=== PATIENT | female | born 1950 ===

== ENCOUNTER 2019-10-27 04:04 | Inpatient (IN) | payer MEDICARE ==
[2019-10-27] MEDS ORDERED: Heparin 1,000 UNITS/ML VIAL ONE ×2 (04:06→04:07)
[2019-10-27 04:35] LABS: #Lymphocytes 1.5 thou/uL (1.20-3.40); #Monocytes 0.8 thou/uL (0.11-0.59); #Neutrophils 10.5 thou/uL (1.40-6.50); %Basophils 0.1 % (0.0-1.0); %Eosinophils 0.3 % (0.0-10.0); %Lymphocytes 11.6 % (21.0-51.0); %Monocytes 6.2 % (0.0-10.0); %Neutrophils 81.7 % (42.0-75.0); Hemoglobin 15.3 g/dL (12.0-16.0); Mean Corpuscular Hemoglobin 31.2 pg (27.0-31.0); Mean Platelet Volume 6.2 fL (7.4-10.4); Platelet Count 184 thou/uL (130-400); RBC Distribution Width 12.2 % (11.5-14.5); Red Blood Cell (RBC) Count 4.92 mill/uL (4.20-5.40); White Blood Cell (WBC) Count 12.8 thou/uL (4.8-10.8)
[2019-10-27 04:47] LABS: Prothrombin Time 13.1 SEC (12.0-14.7)
[2019-10-27 05:24] LABS: ALT (SGPT) 32 U/L (8-55); AST (SGOT) 170 U/L (5-34); Albumin 3.9 g/dL (3.4-4.8); Alkaline Phosphatase 104 U/L (40-110); Anion Gap 19 mmol/L (10-20); BUN (Urea Nitrogen) 10 mg/dL (9.8-20.1); Bilirubin, Total 1.4 mg/dL (0.2-1.2); CK (CPK) 1766 U/L (29-168); Calc. Creatinine Clearance 0 mL/min (70-130); Calcium 8.5 mg/dL (7.8-10.44); Carbon Dioxide 17 mmol/L (23-31); Chloride 99 mmol/L (98-107); Estimated GFR-MDRD Greater than 90; Globulin 2.7 g/dL (2.4-3.5); Glucose 147 mg/dL (80-115); Lipase 13 U/L (8-78); Potassium 4.1 mmol/L (3.5-5.1); Protein, Total 6.6 g/dL (6.0-8.3); Sodium 131 mmol/L (136-145)
[2019-10-27] MEDS ORDERED: Milk Of Magnesia 30 ML UDCUP PO PRN ×2 (05:56→06:04)
[2019-10-27] MEDS ORDERED: Mag-Al 1200 mg/1200 mg/30 ML UDCUP PO PRN ×2 (05:56→06:04)
[2019-10-27] MEDS ORDERED: Sodium Chloride 0.9% 1,000 ML IV SCH ×2 (05:56→15:11)
[2019-10-27] MEDS ORDERED: Aspirin Chewable 81 MG TAB PO SCH (05:56)
[2019-10-27] MEDS ORDERED: traMADol HCl 50 MG TAB PO PRN (05:56)
[2019-10-27] MEDS ORDERED: Morphine 2 MG/ML SYRINGE SLOW IVP PRN ×2 (05:56→06:01)
[2019-10-27] MEDS ORDERED: Zolpidem Tartrate 5 MG TAB PO PRN ×2 (05:56→06:04)
[2019-10-27] MEDS ORDERED: Nitroglycerin 50 MG/250 ML BOT 250 ML IVPB SCH (05:56)
[2019-10-27] MEDS ORDERED: Acetaminophen/Codeine 30-300mg Tablet PO PRN ×4 (05:56)
[2019-10-27] MEDS ORDERED: Nitroglycerin 0.4 MG TAB (25 Tab Bottle) SL PRN ×3 (05:56→06:03)
[2019-10-27] MEDS ORDERED: Sodium Chloride 0.9% 200 ML IV PRN (05:56)
[2019-10-27] MEDS ORDERED: Morphine 4 MG/ML VIAL SLOW IVP PRN (06:02)
[2019-10-27 06:09] VITALS: BMI 29.3
[2019-10-27 06:23] LABS: Hemoglobin 15.4 g/dL (12.0-16.0); Platelet Count 161 thou/uL (130-400)
[2019-10-27] MEDS ORDERED: Prevnar 13-Val Conj/PF 0.5 ML SYRINGE IM ONE (06:30)
[2019-10-27] MEDS ORDERED: FLU VACC TS2019-20(65YR UP)/PF 180 MCG/0.5 ML SYRINGE IM ONE (06:30)
[2019-10-27 06:59] LABS: Troponin I 27.559 ng/mL (< 0.028)
[2019-10-27 06:59] LABS: CKMB 271.9 ng/mL (0-6.6)
[2019-10-27 07:04] LABS: PTT 140.5 SEC (22.9-36.1)
[2019-10-27] MEDS: Carvedilol 3.125 MG TAB PO SCH ×2 (08:30→17:30)
[2019-10-27] MEDS: Aspirin Chewable 81 MG TAB PO SCH (08:31)
[2019-10-27] MEDS: Lisinopril 2.5 MG TAB PO SCH (08:31)
[2019-10-27] MEDS: Heparin 25,000 units/D5W 500 ML IVPB SCH (08:36)
[2019-10-27] MEDS ORDERED: Aspirin 81 mg Enteric Coated Tablet PO SCH (09:00)
[2019-10-27] MEDS ORDERED: Lisinopril 5 MG TAB PO SCH (09:00)
[2019-10-27] MEDS ORDERED: Metoprolol Tartrate 25 MG TAB PO SCH (09:00)
--- NOTE | 2019-10-27 09:15 | HP ---
INDICATION FOR ADMISSION: A 69-year-old female with acute anterior myocardial infarction, ST-segment elevation [place]. HISTORY OF PRESENT ILLNESS: This very pleasant 69-year-old female has a history of tobacco abuse as well as hypertension and uncertain about her cholesterol level. She started having chest pain yesterday evening around 6:30. She took antacids without any relief. She finally called 911. She was seen by EMS and was air-transported here to [facility] for acute anterior myocardial infarction with ST-segment elevations in V1 through V4. She had no previous cardiac history that she is aware of. At this time, her pain originally was about 8/10 and now has decreased down to about 2. She continues to have some pressure. She will be taken emergently to the cardiac laboratory operations coordinator. PAST MEDICAL HISTORY: Significant for hernia repair and also a cholecystectomy and a history of hypertension and hypercholesterolemia most likely. SOCIAL HISTORY: She has a history of tobacco abuse. She continues to smoke. She has smoked for many years now. FAMILY HISTORY: Noncontributory at this time. REVIEW OF SYSTEMS: She complains of constipation. Otherwise, 12-point review of systems unremarkable except for what was noted in the history of present illness. MEDICATIONS: 1. Lisinopril. 2. Lorazepam. ALLERGIES: NONE. PHYSICAL EXAMINATION: GENERAL: An elderly female. She is in mild distress just due to the pain. HEENT: Head is normocephalic and atraumatic. Carotid pulses are present. CHEST: Clear to auscultation. CARDIOVASCULAR: Regular rate and rhythm at this time. No significant murmurs, heaves, thrills, bruits, or rubs. ABDOMEN: Soft, nontender. Well-healed surgical incisions. EXTREMITIES: Pedal pulses are present. Femoral pulses are present. No lower extremity edema. SKIN: Warm and dry. NEUROLOGICAL: She appears to be intact. IMPRESSION AND PLAN: There is no laboratory data as of yet, but we will take the patient emergently to the cardiac laboratory operations coordinator. She denies any history of other medical problems. Given the urgent situation, we will proceed with cardiac catheterization on an urgent basis. Her blood pressure is 129/88, heart rate is 78, respiratory rate is 17. EKG as noted above for acute anterior myocardial infarction with ST-segment elevation in V1 through V4. She still has a small R-wave in V3 as well as R-wave in V4. I have explained the procedure and the risks to her, to include bleeding, infection, possible myocardial infarction, CVA, renal insufficiency, allergic contrast reaction, and the possibility of . She understands and agrees to proceed. We will plan for emergent cardiac catheterization. Job ID: [id number]
--- NOTE | 2019-10-27 09:18 | RAD ---
PORTABLE CHEST: Date: 10/27/2019 HISTORY: Chest pain. FINDINGS: Lungs show no evidence of infiltrate. Heart size normal. Vasculature is mildly prominent. No signific ant effusion. IMPRESSION: No focal infiltrate. POS: [facility]
[2019-10-27] MEDS ORDERED: Iopamidol 370 76% 100 ML VIAL ONE (09:29)
[2019-10-27] MEDS ORDERED: Iopamidol 370 76% 50 ML VIAL FS ONE (09:29)
--- NOTE | 2019-10-27 09:55 | PRG ---
DATE OF SERVICE: 10/27/2019 SUBJECTIVE: This is a 69-year-old female, who suffered an acute myocardial infarction earlier today or yesterday evening that was felt to be an anterior myocardial infarction. However, this most likely was an old infarct in the past that was an asymptomatic myocardial infarction previously, what appeared to be the culprit vessel at this time was most likely the right coronary artery in the mid section, was 90% stenosis, if not 95% stenosis with ectatic vessel, aneurysmal section in the proximal portion and distally, had no evidence of significant stenosis. This vessel was not amenable to undergo angioplasty or stent placement due to the high risk involved and not being certain that this was not the culprit vessel. Her enzymes did not increase significantly, which would make me believe this most likely was a right coronary artery. If it has been a total occlusion of the left anterior descending artery, her cardiac enzymes would have been some more significantly elevated than what they are. Her troponin-I this morning was 27. When she arrived about 4 o'clock this morning, troponin-I was 17.9, MB was 271, and her CK was 1766. At this time, she remains stable. She has no chest pain. She is comfortable. Her blood pressure is 145/91, pulse is 81, respiratory rate is 22, and O2 saturation 99%. PHYSICAL EXAMINATION: HEENT: Reveals the head to be normocephalic and atraumatic. CHEST: Clear to auscultation. CARDIOVASCULAR: Reveals a regular rate and rhythm. There were no gross murmurs. ABDOMEN: Soft and nontender. EXTREMITIES: Pedal pulses are present. NEUROLOGIC: She appears to be fully intact. LABORATORY DATA: Other laboratory data, they are none since earlier today when she had arrival at 4 o'clock this morning, hemoglobin was 15.4 at this time post-catheterization and hematocrit was 43.6. IMPRESSION: 1. Status post acute myocardial infarction, which most likely was involving the right coronary artery and she has a totally occluded left anterior descending artery, flush occlusion at the left main. The left circumflex is free of any significant flow limiting disease. The right coronary artery is severely diseased with a subtotal stenosis also of 90% to 95% and has a good distal target. The ejection fraction actually had been relatively well preserved at about 35% to 40%, if not better, and most likely, when she is recuperated from this initial myocardial infarction, she will be served most likely by undergoing a bypass surgery, which will be single-bypass surgery to the right coronary artery. 2. History of tobacco abuse. Hopefully, she will no longer smoke. 3. Hypertension, this is stable at this time. We will continue to manage the medicines as needed. Also, we will evaluate the cholesterol and we will start statin medications. I have already discussed her case with the CT surgeons and they will evaluate and will decide on the timing of further intervention or surgery. Job ID: [id number]
--- NOTE | 2019-10-27 09:58 | CON ---
DATE OF CONSULTATION: 10/27/2019 HISTORY OF PRESENT ILLNESS: Ms. Carney is a 69-year-old woman, who was brought in with ST-elevation myocardial infarction early this morning. She began having pain yesterday at approximately 6 p.m. and had progressed through the night, where she could not stand anymore in early childhood associate hours and came to the Emergency Department. She was seen by Dr. Sierra and taken for cardiac catheterization. Her catheterization showed a chronically occluded LAD with no back filling. Her circumflex system has no significant luminal encroachment. The right coronary artery is diffusely diseased, more than likely heavily calcified. There may be a bypassable segment down at the distal right/PDA area. It is unapproachable from a stenting standpoint at this stage. The patient smokes half to one pack of cigarettes a day. She has hypertension and takes 10 mg of lisinopril per day. She really has done not much else as far as maintenance medical therapy. PAST MEDICAL HISTORY: Hypertension. PAST SURGICAL HISTORY: None. CURRENT MEDICATIONS: 1. Lisinopril 10 mg daily. 2. Trazodone 50 mg at bedtime. 3. Lorazepam 1 mg p.r.n. ALLERGIES: NONE. SOCIAL HISTORY: She smokes a half to one pack of cigarettes a day. She lives in [place], was here caring for her sister when she came in. REVIEW OF SYSTEMS: A 10-point review of systems is performed, is negative except as above. PHYSICAL EXAMINATION: GENERAL: This is a well-developed, diminutive elderly woman, resting comfortably in the ICU without pain. VITAL SIGNS: Her height is 4 feet 11 inches, weight is 145 pounds, and BSA is 1.66. Heart rate is 81 and regular and blood pressure is 145/91. HEENT: Sclerae nonicteric. Pupils are equal and round bilaterally. NECK: Supple. She has no carotid bruit. CHEST: Clear bilaterally. HEART: Rhythm is regular without murmur. ABDOMEN: Soft and nontender. EXTREMITIES: No cyanosis, clubbing, or edema. VASCULAR: She has palpable carotid, radial, femoral, and dorsalis pedis pulses bilaterally. VENOUS: She has no venous varicosities or venous stasis changes. PSYCHIATRIC: She is awake, alert, and oriented to person, place, and time. LABORATORY DATA: Of note, hemoglobin is 15.3 and platelet count is 184,000. Her potassium is 4.1 and creatinine is 0.64. CK-MB is 272 and troponin is 28 and rising. ASSESSMENT AND PLAN: A 69-year-old woman status post ST-elevation myocardial infarction with an occluded LAD chronically with bypassable right coronary artery. She is not approachable from an interventional standpoint. On ventriculogram, her ejection fraction is 15% to 20%. I have discussed the case with Dr. Sierra and the patient and her family. We will allow her to recover from her TN and then make plans for single-vessel bypass to the PDA in the near future. Job ID: [id number]
[2019-10-27 10:19] LABS: Cardiac Risk 3.8 (Less than 4.5)
[2019-10-27 13:04] LABS: Troponin I 57.775 ng/mL (< 0.028)
--- NOTE | 2019-10-27 15:38 | CON ---
DATE OF CONSULTATION: 10/27/2019 SERVICE: Pulmonary Medicine. REASON FOR CONSULT: ICU patient. HISTORY OF PRESENT ILLNESS: The patient is a 69-year-old white female with past medical history significant for coronary artery disease. She was in her usual state of health when she started having onset of heartburn for the last 3 or 4 days. It was episodic, but it seemed to come on with exertion. Either way, she was sitting, comfortably doing nothing when she ended up having an episode of this heartburn discomfort that spread all the way across her chest and became crushing in nature. She presented to the emergency department and was discovered to have an ST- elevation myocardial infarction. She went down for a cardiac catheterization and an attempt was made opening of a blood vessel. She currently has a twinge of discomfort in the chest, but nothing similar to what brought her to the emergency department. Prior to this event, she was in her usual state of health and did not experience any significant nausea, vomiting, diarrhea, fevers, chills, sputum production. She does not have any known lung problems like COPD or asthma. She is not currently taking any inhalers. Overnight, hemodynamics have been stable, the patient does not report any significant discomforts currently. PAST MEDICAL HISTORY: 1. Coronary artery disease. 2. Hypertension. 3. Dyslipidemia. PAST SURGICAL HISTORY: 1. Cholecystectomy. 2. Repair of hernia. SOCIAL HISTORY: She smokes half a pack on a daily basis, but had greater than 40 pack-year history of smoking. Denies any alcohol or illicit drugs. She has no exposure to chemicals, dust, asbestos, or tuberculosis. FAMILY HISTORY: Noncontributory. ALLERGIES: NO KNOWN DRUG ALLERGIES. MEDICATIONS: List of her inpatient medications were reviewed. No specific updates were made at this time. REVIEW OF SYSTEMS: General; head, ears, eyes, nose, throat; cardiovascular, respiratory, GI, , musculoskeletal, neurologic, and skin are negative except as mentioned in the HPI. PHYSICAL EXAMINATION: VITAL SIGNS: Afebrile, pulse 84, blood pressure 139/94, respirations 30, saturation 95%, currently on 2 L nasal cannula. GENERAL: The patient is awake and alert, in no apparent distress. LUNGS: Good air entry bilaterally. There is no prolonged expiratory phase. Dependent crackles are minimal. No rhonchi. HEART: Normal rate, regular. ABDOMEN: Soft, nontender, nondistended. Bowel sounds are positive. MUSCULOSKELETAL: No cyanosis or clubbing. There is trace pitting in the bilateral lower extremities. NEUROLOGIC: Grossly nonfocal. LABORATORY DATA: Hemoglobin 15.4, WBC 12.8, platelets 184,000. INR 1.0. Troponin is increasing to 57.7. CK 1700, ALT of 32. Total bilirubin 1.4. Basic metabolic profile is otherwise unremarkable. Lipase is unremarkable. Echocardiogram demonstrates 35% to 40% ejection fraction. The septum is akinetic and apex is dyskinetic. There is 1/3 diastolic dysfunction. The anterior wall is also akinetic. Left atrium is msfs-[id number] dilated. ASSESSMENT: 1. Acute hypoxic respiratory failure. 2. Acute on chronic systolic and diastolic heart failure. 3. Acute ST elevation myocardial infarction, status post cardiac catheterization and no intervention could be performed. DISCUSSION AND PLAN: The patient is doing okay from respiratory and hemodynamic standpoint currently. We will watch for signs of end-organ damage and we will repeat liver function studies tomorrow morning. Pulmonary/Critical Care will continue to follow in this location. She is being considered for revascularization procedure. In the meantime, IV fluids will be interrupted. 70 minutes have been devoted to this patient in various activities. I personally reviewed all imaging studies and laboratory data noted within this document. For fifty percent of this time, I was interacting with the patient at the bedside or coordinating care with the care team. For the remainder of the time I was immediately available to the patient in the hospital unit. Job ID: [id number] MTDD
[2019-10-27] MEDS: Lorazepam 1 MG TAB PO PRN ×2 (15:52→19:49)
[2019-10-27] MEDS ORDERED: Ondansetron PF 4 MG/2 ML Vial SLOW IVP PRN (19:01)
[2019-10-27] MEDS ORDERED: Atorvastatin Calcium 40 MG TAB PO SCH (21:00)
[2019-10-27] MEDS: traZODone HCl 50 MG TAB PO SCH (21:38)
[2019-10-28 02:34] LABS: #Basophils 0.1 thou/uL (0.0-0.2); #Lymphocytes 0.9 thou/uL (1.20-3.40); #Monocytes 0.7 thou/uL (0.11-0.59); #Neutrophils 12.5 thou/uL (1.40-6.50); %Basophils 0.4 % (0.0-1.0); %Eosinophils 0.1 % (0.0-10.0); %Lymphocytes 6.3 % (21.0-51.0); %Monocytes 5.3 % (0.0-10.0); %Neutrophils 87.9 % (42.0-75.0); Hemoglobin 16.6 g/dL (12.0-16.0); Mean Corpuscular HGB CONC 35.6 g/dL (32.0-36.0); Mean Corpuscular Hemoglobin 31.4 pg (27.0-31.0); Mean Corpuscular Volume 88.2 fL (78.0-98.0); Mean Platelet Volume 6.2 fL (7.4-10.4); Platelet Count 166 thou/uL (130-400); RBC Distribution Width 12.3 % (11.5-14.5); Red Blood Cell (RBC) Count 5.29 mill/uL (4.20-5.40); White Blood Cell (WBC) Count 14.2 thou/uL (4.8-10.8)
[2019-10-28 03:05] LABS: ALT (SGPT) 67 U/L (8-55); AST (SGOT) 304 U/L (5-34); Albumin 3.7 g/dL (3.4-4.8); Alkaline Phosphatase 107 U/L (40-110); Anion Gap 13 mmol/L (10-20); BUN (Urea Nitrogen) 8 mg/dL (9.8-20.1); Bilirubin, Total 1.8 mg/dL (0.2-1.2); CK (CPK) 1706 U/L (29-168); Calc. Creatinine Clearance 81 mL/min (70-130); Carbon Dioxide 23 mmol/L (23-31); Cardiac Risk 3.8 (Less than 4.5); Chloride 103 mmol/L (98-107); Cholesterol 214 mg/dl (< 200 Desired); Estimated GFR-MDRD 87; Globulin 2.9 g/dL (2.4-3.5); Glucose 142 mg/dL (80-115); HDL Cholesterol 56 mg/dL (>60 Neg Risk); LDL Cholesterol, Calculated 137 mg/dL; Potassium 3.6 mmol/L (3.5-5.1); Protein, Total 6.6 g/dL (6.0-8.3); Sodium 135 mmol/L (136-145); Triglycerides 105 mg/dL (Less than 150)
[2019-10-28] MEDS: Heparin 10,000 UNITS/ 10 ML VIAL SLOW IVP SCH ×2 (03:23→10:05)
[2019-10-28 08:33] LABS: Troponin I 69.353 ng/mL (< 0.028)
[2019-10-28] MEDS: Carvedilol 3.125 MG TAB PO SCH ×2 (08:44→17:41)
[2019-10-28] MEDS: Lisinopril 2.5 MG TAB PO SCH (08:44)
[2019-10-28] MEDS: Aspirin Chewable 81 MG TAB PO SCH (08:44)
[2019-10-28] MEDS: Lorazepam 1 MG TAB PO PRN ×2 (08:45→17:47)
[2019-10-28] MEDS ORDERED: Magnesium Citrate 300 ML BOT PO PRN ×2 (08:56→08:59)
[2019-10-28] MEDS ORDERED: Bisacodyl 5 MG TAB PO PRN ×2 (08:58)
[2019-10-28] MEDS ORDERED: Bisacodyl 10 MG SUPP PR PRN (08:58)
--- NOTE | 2019-10-28 09:07 | PDOC.CPN ---
- Subjective Date: 10/28/19 Time: 09:11 Interval history: The pt seen and examined. No overnight events. No cardiac complaints. - Objective Allergies/Adverse Reactions: Allergies Allergy/AdvReac Type Severity Reaction Status Date / Time No Known Allergies Allergy Unverified 10/27/19 05:49 Visit Medications: Current Medications Acetaminophen/Codeine Phosphate (Tylenol #3) 1 tab PO Q4H PRN PRN Reason: Mild Pain (1-3) Acetaminophen/Codeine Phosphate (Tylenol #3) 2 tab PO Q4H PRN PRN Reason: Moderate Pain (4-6) Al Hydroxide/Mg Hydroxide (Maalox) 30 ml PO Q3H PRN PRN Reason: Indigestion Aspirin (Aspirin Chewable) 81 mg PO DAILY [facility] Last Admin: 10/28/19 08:44 Dose: 81 mg Atorvastatin Calcium (Lipitor) 40 mg PO HS [facility] Last Admin: 10/27/19 21:41 Dose: Not Given Bisacodyl (Dulcolax) 5 mg PO DAILYPRN PRN PRN Reason: Constipation Bisacodyl (Dulcolax) 10 mg PO DAILYPRN PRN PRN Reason: Constipation Bisacodyl (Dulcolax) 10 mg MA DAILYPRN PRN PRN Reason: Constipation Carvedilol (Coreg) 3.125 mg PO BID-[facility] Last Admin: 10/28/19 08:44 Dose: 3.125 mg Heparin Sodium (Porcine) (Heparin 1,000 Units/Ml (10 Ml)) 0 units SLOW IVP ASDIR [facility]; Protocol Last Admin: 10/28/19 03:23 Dose: 1,977 unit Heparin Sodium/Dextrose (Heparin 25,000 Units/D5w 500 Ml) 500 mls @ 0 mls/hr IVPB INF [facility]; Protocol Last Admin: 10/27/19 08:36 Dose: 500 mls Nitroglycerin/Dextrose (Nitroglycerin 50 Mg/250 Ml Bot) 250 mls @ 0 mls/hr IVPB INF [facility]; Protocol Sodium Chloride (Normal Saline 0.9%) 200 mls @ 0 mls/hr IV ONE PRN PRN Reason: SBP < 90 Stop: 10/29/19 05:57 Sodium Chloride (Normal Saline 0.9%) 1,000 mls @ 0 mls/hr IV .Q0M [facility] Lisinopril (Zestril) 2.5 mg PO DAILY [facility] Last Admin: 10/28/19 08:44 Dose: 2.5 mg Lorazepam (Ativan) 1 mg PO Q4H PRN PRN Reason: Anxiety/Agitation Last Admin: 10/28/19 08:45 Dose: 1 mg Magnesium Citrate (Citrate Of Magnesia 300 Ml Bot) 300 ml PO PRN PRN PRN Reason: Constipation Magnesium Hydroxide (Milk Of Magnesium) 30 ml PO Q12H PRN PRN Reason: Constipation Last Admin: 10/28/19 08:53 Dose: 30 ml Morphine Sulfate (Morphine) 4 mg SLOW IVP Q4H PRN PRN Reason: Severe Pain (7-10) Last Admin: 10/27/19 06:18 Dose: 4 mg Morphine Sulfate (Morphine) 2 mg SLOW IVP Q5MIN PRN PRN Reason: Chest Pain Nitroglycerin (Nitrostat) 0.4 mg SL Q5MIN PRN PRN Reason: Chest Pain Ondansetron HCl (Zofran) 4 mg SLOW IVP Q6H PRN PRN Reason: Nausea Last Admin: 10/27/19 20:12 Dose: 4 mg Polyethylene Glycol (Miralax) 17 gm PO DAILY [facility] Sodium Chloride (Flush - Normal Saline) 10 ml IVF Q12HR [facility] Last Admin: 10/27/19 21:41 Dose: 10 ml Sodium Chloride (Flush - Normal Saline) 10 ml IVF PRN PRN PRN Reason: Saline Flush Tramadol HCl (Ultram) 50 mg PO Q6H PRN PRN Reason: Pain Last Admin: 10/27/19 11:48 Dose: 50 mg Trazodone HCl (Desyrel) 50 mg PO HS [facility] Last Admin: 10/27/19 21:38 Dose: 50 mg Zolpidem Tartrate (Ambien) 5 mg PO HSPRN PRN PRN Reason: Insomnia Last Admin: 10/27/19 22:09 Dose: 5 mg Vital Signs & Weight: Vital Signs Temp Pulse Resp BP 10/28/19 08:44 92 126/91 H 10/28/19 05:07 92 26 H 117/66 10/28/19 04:00 98 F Admit Weight 145 lb 4.554 oz Weight 145 lb 4.554 oz - Physical Exam General: alert & oriented x3 HEENT: mucus membranes moist Neck: supple neck Cardiac: regular rate and rhythm, S1/S2 Lungs: decreased breath sounds Neuro: cranial nerve 2-12 intact Extremities: no edema - Labs Result Diagrams: 10/28/19 02:28 10/28/19 02:28 Troponin/CKMB CK-MB (CK-2) 271.9 ng/mL (0-6.6) H* 10/27/19 04:11 Troponin I 69.353 ng/mL (< 0.028) H* 10/28/19 02:28 - Telemetry Sinus rhythms and dysrhythmias: sinus rhythm - Assessment/Plan Assessment/Plan: 1. CAD with plan for CABG x1 to RCA in future by Dr Welsh; s/p LHC on 2019 with 100% stenosis in LAD and no stenosis in Lt Cx. On bblocker, Lisinopril, ASA. Will hold statin for now for elevated LFT 2. HLD with Elevated LFT - will hold Statin for now 3. HTN - stable with current med 4. Anxiety 5. Tobacco abuse - Strongly recommend smoking cessation to the pt 6. Constipation - will order Miralax, Docolax, Mg citrate MAR reviewed Pt. seen and eval. by me. I agree with the A/P by the [employer]. She walked today without problems. The Troponin -I is still trending upward. I will keep the pt. in the ICU. She will need intervention to the RCA prior to d/c, either CABG or high risk ptca/stent. The LAD was likely totally included in the past. ME was likely due to the RCA, this has remaed open on antiplatelet therapy and heparin. Chest: clear. RRR. No edema. gjmays
[2019-10-28] MEDS: Polyethylene Glycol 3350 17 GM Packet PO SCH (10:04)
[2019-10-28] MEDS: Heparin 25,000 units/D5W 500 ML IVPB SCH (10:08)
[2019-10-28 10:42] LABS: Troponin I 87.821 ng/mL (< 0.028)
[2019-10-28 16:15] LABS: Critical Call Chem Troponin I RESULT DECREASING; Troponin I 80.259 ng/mL (< 0.028)
--- NOTE | 2019-10-28 17:02 | EKG ---
Test Reason : Blood Pressure : / mmHG Vent. Rate : 080 BPM Atrial Rate : 080 BPM P-R Int : 186 ms QRS Dur : 122 ms QT Int : 406 ms P-R-T Axes : 067 -14 085 degrees QTc Int : 468 ms Normal sinus rhythm Anteroseptal infarct , possibly acute ACUTE MT / STEMI Abnormal ECG No previous ECGs available Confirmed by DR. Tenzin EATON ([id number]) on 10/28/2019 5:01:43 PM Referred By: MAXIMILIAN Confirmed By:DR. Tenzin EATON
[2019-10-28] MEDS: traZODone HCl 50 MG TAB PO SCH (20:09)
--- NOTE | 2019-10-28 20:37 | PRG ---
DATE OF SERVICE: 10/28/2019 SERVICE: Pulmonary Medicine. INTERVAL HISTORY: The patient is doing fine from respiratory standpoint. She is breathing comfortably. She is not having much in way of chest discomfort. Her biggest complaint right now is constipation. She will remain in the ICU for the time being. Otherwise, there has been no interval change to her condition. PHYSICAL EXAMINATION: VITAL SIGNS: Afebrile, pulse 97, blood pressure 127/76, respirations 27, saturation 97%, currently on 2 L nasal cannula. GENERAL: The patient is awake and alert, in no apparent distress. LUNGS: Good air entry bilaterally. No prolonged expiratory phase or wheezing appreciated. Dependent crackles are mild. HEART: Normal rate, regular. ABDOMEN: Soft, nontender, nondistended. Bowel sounds are positive. MUSCULOSKELETAL: No cyanosis or clubbing. No pitting in bilateral lower extremities. NEUROLOGIC: Grossly nonfocal. ASSESSMENT: 1. Acute hypoxic respiratory failure. 2. Acute on chronic systolic and diastolic heart failure. 3. Acute ST elevation myocardial infarction, status post cardiac catheterization , but no intervention could be performed. DISCUSSION AND PLAN: We will provide the patient with some medications to facilitate a bowel movement. If this is not effective and docusate suppository is not effective, p.r.n. enema will be provided. Critical Care will follow. Job ID: [id number] [facility]
[2019-10-29] MEDS: Lorazepam 1 MG TAB PO PRN ×4 (01:11→20:25)
[2019-10-29 04:29] LABS: Critical Call Chem Troponin I RESULT DECREASING; Troponin I 72.968 ng/mL (< 0.028)
[2019-10-29 06:12] LABS: Hemoglobin 13.8 g/dL (12.0-16.0); Platelet Count 151 thou/uL (130-400)
[2019-10-29] MEDS: Carvedilol 3.125 MG TAB PO SCH ×2 (08:52→16:23)
[2019-10-29] MEDS: Aspirin Chewable 81 MG TAB PO SCH (08:52)
[2019-10-29] MEDS: Lisinopril 2.5 MG TAB PO SCH (08:53)
[2019-10-29] MEDS: Polyethylene Glycol 3350 17 GM Packet PO SCH (08:53)
[2019-10-29] MEDS: Heparin 25,000 units/D5W 500 ML IVPB SCH (08:54)
[2019-10-29] MEDS: Heparin 10,000 UNITS/ 10 ML VIAL SLOW IVP SCH ×2 (10:40→23:28)
[2019-10-29 16:25] LABS: Hemoglobin A1c 4.8 % (4.0-6.0)
[2019-10-29] MEDS ORDERED: Communication Order-Pharmacy FS ONE (17:24)
--- NOTE | 2019-10-29 19:19 | PRG ---
DATE OF SERVICE: 10/29/2019 SERVICE: Pulmonary Medicine. INTERVAL HISTORY: The patient is doing fine from respiratory standpoint. Breathing comfortably. No complaints of chest discomfort. She is able to work with physical therapy slightly. Otherwise, there has been no interval change in her condition. PHYSICAL EXAMINATION: VITAL SIGNS: Afebrile, pulse 87, blood pressure 85/62, respirations 16, and saturation 98%, currently on room air. GENERAL: The patient is awake and alert, in no apparent distress. LUNGS: Good air entry. Dependent crackles are minimal. There is no prolonged expiratory phase or wheezing appreciated. HEART: Normal rate. Regular. ABDOMEN: Soft, nontender, and nondistended. Bowel sounds positive. MUSCULOSKELETAL: No cyanosis or clubbing. There is trace pitting in bilateral lower extremities. NEUROLOGIC: Grossly nonfocal. LABORATORY DATA: Hemoglobin 13.8 and platelets 151,000. Troponin is gently downtrending to 72. Basic metabolic profile is unremarkable. Hemoglobin A1c 4.8. ASSESSMENT: 1. Acute hypoxic respiratory failure, resolved. 2. Acute on chronic systolic and diastolic heart failure. 3. Acute myocardial infarction, status post cardiac catheterization, intervention could not be performed. DISCUSSION AND PLAN: The patient is currently without chest discomfort. She has not had any significant events on cardiac monitoring for the past 24 hours. She is being transitioned to the floor. At this point, she has no further requirements for inpatient Pulmonary or Critical Care opinion, and I will sign off. She remains at high risk for complications. Should she develop increasing difficulties, please notify me. Job ID: [id number] MTDD
[2019-10-29] MEDS: traZODone HCl 50 MG TAB PO SCH ×2 (20:20→20:21)
[2019-10-30] MEDS: Heparin 10,000 UNITS/ 10 ML VIAL SLOW IVP SCH (06:18)
[2019-10-30] MEDS: Lorazepam 1 MG TAB PO PRN ×2 (06:38→16:31)
[2019-10-30 06:39] LABS: Critical Call Chem Troponin I RESULT DECREASING; Troponin I 58.858 ng/mL (< 0.028)
[2019-10-30] MEDS: Polyethylene Glycol 3350 17 GM Packet PO SCH (08:18)
[2019-10-30] MEDS: Lisinopril 2.5 MG TAB PO SCH (08:19)
[2019-10-30] MEDS: Carvedilol 3.125 MG TAB PO SCH ×2 (08:19→17:35)
[2019-10-30] MEDS: Aspirin Chewable 81 MG TAB PO SCH (08:19)
[2019-10-30] MEDS: Heparin 25,000 units/D5W 500 ML IVPB SCH (08:20)
--- NOTE | 2019-10-30 09:54 | PDOC.CPN ---
- Subjective Date: 10/30/19 Time: 09:55 Interval history: The pt seen and examined. No overnight events. No cardiac complaints. - Objective Allergies/Adverse Reactions: Allergies Allergy/AdvReac Type Severity Reaction Status Date / Time No Known Allergies Allergy Unverified 10/27/19 05:49 Visit Medications: Current Medications Acetaminophen/Codeine Phosphate (Tylenol #3) 1 tab PO Q4H PRN PRN Reason: Mild Pain (1-3) Stop: 11/01/19 08:59 Acetaminophen/Codeine Phosphate (Tylenol #3) 2 tab PO Q4H PRN PRN Reason: Moderate Pain (4-6) Stop: 11/01/19 08:59 Al Hydroxide/Mg Hydroxide (Maalox) 30 ml PO Q3H PRN PRN Reason: Indigestion Stop: 11/01/19 08:59 Aspirin (Aspirin Chewable) 81 mg PO DAILY GREGG Stop: 11/01/19 08:59 Last Admin: 10/30/19 08:19 Dose: 81 mg Bisacodyl (Dulcolax) 5 mg PO DAILYPRN PRN PRN Reason: Constipation Stop: 11/01/19 08:59 Bisacodyl (Dulcolax) 10 mg UT DAILYPRN PRN PRN Reason: Constipation Stop: 11/01/19 08:59 Carvedilol (Coreg) 3.125 mg PO BID-[facility] Last Admin: 10/30/19 08:19 Dose: 3.125 mg Heparin Sodium (Porcine) (Heparin 1,000 Units/Ml (10 Ml)) 0 units SLOW IVP ASDIR GREGG; Protocol Stop: 11/01/19 08:59 Last Admin: 10/30/19 06:18 Dose: 1.97 ml Heparin Sodium/Dextrose (Heparin 25,000 Units/D5w) 500 mls @ 0 mls/hr IVPB INF GREGG; Protocol Stop: 11/01/19 08:59 Last Admin: 10/30/19 08:20 Dose: 500 mls Nitroglycerin/Dextrose (Nitroglycerin 50 Mg/250 Ml Bot) 250 mls @ 0 mls/hr IVPB INF GREGG; Protocol Stop: 11/01/19 08:59 Sodium Chloride (Normal Saline 0.9%) 1,000 mls @ 0 mls/hr IV .Q0M GREGG Stop: 11/01/19 08:59 Lisinopril (Zestril) 2.5 mg PO DAILY [facility] Last Admin: 10/30/19 08:19 Dose: 2.5 mg Lorazepam (Ativan) 1 mg PO Q4H PRN PRN Reason: Anxiety/Agitation Stop: 11/01/19 08:59 Last Admin: 10/30/19 06:38 Dose: 1 mg Magnesium Citrate (Citrate Of Magnesia 300 Ml Bot) 300 ml PO PRN PRN PRN Reason: Constipation Stop: 11/01/19 08:59 Last Admin: 10/28/19 14:55 Dose: 300 ml Magnesium Hydroxide (Milk Of Magnesium) 30 ml PO Q12H PRN PRN Reason: Constipation Stop: 11/01/19 08:59 Last Admin: 10/28/19 08:53 Dose: 30 ml Morphine Sulfate (Morphine) 4 mg SLOW IVP Q4H PRN PRN Reason: Severe Pain (7-10) Stop: 11/01/19 08:59 Last Admin: 10/27/19 06:18 Dose: 4 mg Morphine Sulfate (Morphine) 2 mg SLOW IVP Q5MIN PRN PRN Reason: Chest Pain Stop: 11/01/19 08:59 Nitroglycerin (Nitrostat) 0.4 mg SL Q5MIN PRN PRN Reason: Chest Pain Stop: 11/01/19 08:59 Ondansetron HCl (Zofran) 4 mg SLOW IVP Q6H PRN PRN Reason: Nausea Stop: 11/01/19 08:59 Last Admin: 10/27/19 20:12 Dose: 4 mg Polyethylene Glycol (Miralax) 17 gm PO DAILY GREGG Stop: 11/01/19 08:59 Last Admin: 10/30/19 08:18 Dose: 17 gm Sodium Chloride (Flush - Normal Saline) 10 ml IVF Q12HR GREGG Stop: 11/01/19 08:59 Last Admin: 10/30/19 08:19 Dose: 10 ml Sodium Chloride (Flush - Normal Saline) 10 ml IVF PRN PRN PRN Reason: Saline Flush Stop: 11/01/19 08:59 Last Admin: 10/29/19 16:24 Dose: 10 ml Tramadol HCl (Ultram) 50 mg PO Q6H PRN PRN Reason: Pain Stop: 11/01/19 08:59 Last Admin: 10/27/19 11:48 Dose: 50 mg Trazodone HCl (Desyrel) 50 mg PO HS GREGG Stop: 11/01/19 08:59 Last Admin: 10/29/19 20:21 Dose: 50 mg Zolpidem Tartrate (Ambien) 5 mg PO HSPRN PRN PRN Reason: Insomnia Stop: 11/01/19 08:59 Last Admin: 10/27/19 22:09 Dose: 5 mg Vital Signs & Weight: Vital Signs Temp Pulse Resp BP BP Pulse Ox 10/30/19 08:19 80 10/30/19 07:18 98.9 F 88 12 92/66 97 10/30/19 06:41 89 96/69 10/30/19 03:25 98.6 F 86 18 85/67 L 97 10/30/19 00:32 80 96/70 10/29/19 23:40 98.4 F 80 20 78/57 L 96 Admit Weight 145 lb 4.554 oz Weight 145 lb 4.554 oz - Physical Exam General: alert & oriented x3 HEENT: mucus membranes moist Neck: supple neck Cardiac: regular rate and rhythm, S1/S2 Lungs: decreased breath sounds Neuro: cranial nerve 2-12 intact - Labs Result Diagrams: 10/29/19 05:44 10/28/19 02:28 Troponin/CKMB CK-MB (CK-2) 271.9 ng/mL (0-6.6) H* 10/27/19 04:11 Troponin I 58.858 ng/mL (< 0.028) H* 10/30/19 05:48 - Telemetry Sinus rhythms and dysrhythmias: sinus rhythm - Assessment/Plan Assessment/Plan: 1. CAD with s/p LHC on 10/26/2019 with 100% stenosis in LAD, stenosis in RCA and no stenosis in Lt Cx. Plan for CABG x1 to RCA in future by Dr Welsh on 10/31; On bblocker, Lisinopril, ASA. Will hold statin for elevated LFT. On Heparin drip. 2. HLD with Elevated LFT - will hold Statin for now 3. HTN - stable with current med 4. Anxiety 5. Tobacco abuse - The pt is willing to start smoking cessation 6. Constipation - will order Miralax, Docolax, Mg citrate MAR reviewed Pt. seen and eval. by me. No complaints. Walking in halls. No chest pain or SOB. Chest clear. RRR. Plan for CABG prior to d/c. May need a Life-Vest prior to d/c. Plan to repeat the echo prior to d/c after CABG. hay
[2019-10-30] MEDS: traZODone HCl 50 MG TAB PO SCH (22:28)
[2019-10-31] MEDS: Heparin 25,000 units/D5W 500 ML IVPB SCH ×2 (03:00→20:02)
[2019-10-31] MEDS: Lorazepam 1 MG TAB PO PRN ×4 (03:13→20:05)
[2019-10-31 06:14] LABS: Hemoglobin 11.9 g/dL (12.0-16.0); Platelet Count 156 thou/uL (130-400)
[2019-10-31 06:39] LABS: ALT (SGPT) 36 U/L (8-55); AST (SGOT) 39 U/L (5-34); Albumin 3.1 g/dL (3.4-4.8); Alkaline Phosphatase 79 U/L (40-110); Anion Gap 9 mmol/L (10-20); BUN (Urea Nitrogen) 10 mg/dL (9.8-20.1); Calc. Creatinine Clearance 92 mL/min (70-130); Calcium 8.6 mg/dL (7.8-10.44); Carbon Dioxide 26 mmol/L (23-31); Chloride 104 mmol/L (98-107); Estimated GFR-MDRD Greater than 90; Globulin 2.9 g/dL (2.4-3.5); Glucose 109 mg/dL (80-115); Potassium 3.3 mmol/L (3.5-5.1); Sodium 136 mmol/L (136-145)
--- NOTE | 2019-10-31 08:17 | EKG ---
Test Reason : Blood Pressure : / mmHG Vent. Rate : 101 BPM Atrial Rate : 101 BPM P-R Int : 138 ms QRS Dur : 098 ms QT Int : 348 ms P-R-T Axes : 044 -46 086 degrees QTc Int : 451 ms Sinus tachycardia Left anterior fascicular block Anteroseptal infarct (cited on or before 27-OCT-2019) * ACUTE LA * Abnormal ECG When compared with ECG of 27-OCT-2019 06:04, (Unconfirmed) QRS duration has decreased Serial changes of evolving Anteroseptal infarct Present Confirmed by DR. Washington TEJEDA ([id number]) on 10/31/2019 8:17:23 AM Referred By: MAXIMILIAN Confirmed By:DR. Washington TEJEDA
[2019-10-31] MEDS ORDERED: Potassium Chloride 20 MEQ TAB PO SCH (09:00)
[2019-10-31] MEDS: Polyethylene Glycol 3350 17 GM Packet PO SCH (09:58)
[2019-10-31] MEDS: Aspirin Chewable 81 MG TAB PO SCH (09:58)
[2019-10-31] MEDS: Carvedilol 3.125 MG TAB PO SCH ×2 (09:58→18:39)
[2019-10-31] MEDS: Lisinopril 2.5 MG TAB PO SCH (10:50)
--- NOTE | 2019-10-31 11:14 | PDOC.CPN ---
- Subjective Date: 10/31/19 Time: 11:16 Interval history: The pt seen and examined. No overnight events. No cardiac complaints. She complains of burning sensation during urination - Objective Allergies/Adverse Reactions: Allergies Allergy/AdvReac Type Severity Reaction Status Date / Time No Known Allergies Allergy Unverified 10/27/19 05:49 Visit Medications: Current Medications Acetaminophen/Codeine Phosphate (Tylenol #3) 1 tab PO Q4H PRN PRN Reason: Mild Pain (1-3) Stop: 11/01/19 08:59 Acetaminophen/Codeine Phosphate (Tylenol #3) 2 tab PO Q4H PRN PRN Reason: Moderate Pain (4-6) Stop: 11/01/19 08:59 Al Hydroxide/Mg Hydroxide (Maalox) 30 ml PO Q3H PRN PRN Reason: Indigestion Stop: 11/01/19 08:59 Aspirin (Aspirin Chewable) 81 mg PO DAILY GREGG Stop: 11/01/19 08:59 Last Admin: 10/31/19 09:58 Dose: 81 mg Bisacodyl (Dulcolax) 5 mg PO DAILYPRN PRN PRN Reason: Constipation Stop: 11/01/19 08:59 Bisacodyl (Dulcolax) 10 mg IN DAILYPRN PRN PRN Reason: Constipation Stop: 11/01/19 08:59 Carvedilol (Coreg) 3.125 mg PO BID-[facility] Last Admin: 10/31/19 09:58 Dose: 3.125 mg Heparin Sodium (Porcine) (Heparin 1,000 Units/Ml (10 Ml)) 0 units SLOW IVP ASDIR GREGG; Protocol Stop: 11/01/19 08:59 Last Admin: 10/30/19 06:18 Dose: 1.97 ml Heparin Sodium/Dextrose (Heparin 25,000 Units/D5w) 500 mls @ 0 mls/hr IVPB INF GREGG; Protocol Stop: 11/01/19 08:59 Last Admin: 10/31/19 03:00 Dose: 500 mls Nitroglycerin/Dextrose (Nitroglycerin 50 Mg/250 Ml Bot) 250 mls @ 0 mls/hr IVPB INF GREGG; Protocol Stop: 11/01/19 08:59 Sodium Chloride (Normal Saline 0.9%) 1,000 mls @ 0 mls/hr IV .Q0M GREGG Stop: 03/06/20 08:59 Lorazepam (Ativan) 1 mg PO Q4H PRN PRN Reason: Anxiety/Agitation Stop: 11/01/19 08:59 Last Admin: 10/31/19 09:59 Dose: 1 mg Magnesium Citrate (Citrate Of Magnesia 300 Ml Bot) 300 ml PO PRN PRN PRN Reason: Constipation Stop: 11/01/19 08:59 Last Admin: 10/28/19 14:55 Dose: 300 ml Magnesium Hydroxide (Milk Of Magnesium) 30 ml PO Q12H PRN PRN Reason: Constipation Stop: 11/01/19 08:59 Last Admin: 10/28/19 08:53 Dose: 30 ml Morphine Sulfate (Morphine) 4 mg SLOW IVP Q4H PRN PRN Reason: Severe Pain (7-10) Stop: 11/01/19 08:59 Last Admin: 10/27/19 06:18 Dose: 4 mg Morphine Sulfate (Morphine) 2 mg SLOW IVP Q5MIN PRN PRN Reason: Chest Pain Stop: 11/01/19 08:59 Nitroglycerin (Nitrostat) 0.4 mg SL Q5MIN PRN PRN Reason: Chest Pain Stop: 11/01/19 08:59 Ondansetron HCl (Zofran) 4 mg SLOW IVP Q6H PRN PRN Reason: Nausea Stop: 11/01/19 08:59 Last Admin: 10/27/19 20:12 Dose: 4 mg Polyethylene Glycol (Miralax) 17 gm PO DAILY GREGG Stop: 11/01/19 08:59 Last Admin: 10/31/19 09:58 Dose: 17 gm Sodium Chloride (Flush - Normal Saline) 10 ml IVF Q12HR GREGG Stop: 11/01/19 08:59 Last Admin: 10/31/19 09:59 Dose: 10 ml Sodium Chloride (Flush - Normal Saline) 10 ml IVF PRN PRN PRN Reason: Saline Flush Stop: 11/01/19 08:59 Last Admin: 10/29/19 16:24 Dose: 10 ml Tramadol HCl (Ultram) 50 mg PO Q6H PRN PRN Reason: Pain Stop: 11/01/19 08:59 Last Admin: 10/27/19 11:48 Dose: 50 mg Trazodone HCl (Desyrel) 50 mg PO HS [facility] Stop: 11/01/19 08:59 Last Admin: 10/30/19 22:28 Dose: 50 mg Zolpidem Tartrate (Ambien) 5 mg PO HSPRN PRN PRN Reason: Insomnia Stop: 11/01/19 08:59 Last Admin: 10/27/19 22:09 Dose: 5 mg Vital Signs & Weight: Vital Signs Temp Pulse Resp BP Pulse Ox 10/31/19 10:50 71 10/31/19 07:33 98.4 F 71 16 92/69 96 10/31/19 04:00 97.9 F 79 16 89/76 L 97 10/31/19 00:00 98.7 F 80 16 96/70 96 Admit Weight 145 lb 4.554 oz Weight 145 lb 4.554 oz - Physical Exam General: alert & oriented x3 HEENT: mucus membranes moist Neck: supple neck Cardiac: regular rate and rhythm, S1/S2 Lungs: clear to auscultation - Labs Result Diagrams: 10/31/19 05:56 10/31/19 05:56 Troponin/CKMB CK-MB (CK-2) 271.9 ng/mL (0-6.6) H* 10/27/19 04:11 Troponin I 58.858 ng/mL (< 0.028) H* 10/30/19 05:48 - Telemetry Sinus rhythms and dysrhythmias: sinus rhythm - Assessment/Plan Assessment/Plan: 1. CAD with s/p LHC on 10/26/2019 with 100% stenosis in LAD, stenosis in RCA and no stenosis in Lt Cx. Plan for CABG x1 to RCA in future by Dr Welsh on 10/31; On bblocker and ASA. Lisinopril is on hold how due to hypotensive. may resume statin after CABG; On Heparin drip. 2. HLD with Elevated LFT -may resume Statin after CABG 3. HTN - holding Lisinopril for hypotension 4. Anxiety 5. Tobacco abuse - The pt is willing to start smoking cessation 6. Constipation - will order Miralax, Docolax, Mg citrate 7. Burning during urination - will order UA MAR reviewed * Echo on 10/27/2019 with EF 35-40%, grade I dd, akinetic anterior wall, [place] and Septum, mild MR and TR * May need a Life-Vest prior to d/c. Plan to repeat the echo prior to d/c after CABG. Pt. seen and eval. by me. I agree with the A/P by the HOIST MECHANIC. U/A is + for UTI. Start Rocephin and switch to Cipro tomorrow. I will inform Dr. Herrmann and he may wish to wait over the weekend to do CABG. Chest clear. RRR. No edema.
[2019-10-31 13:23] LABS: Bacteria/HPF 4+ HPF (None Seen); Bilirubin Negative (Negative); Blood, Urine 1+ (Negative); Clarity Extra Turbid (Clear); Glucose, Urine (Dipstick) Normal (Negative); Leukocyte 500 Leu/uL (Negative); Nitrite Negative (Negative); Protein, Urine (Dipstick) 30 mg/dL (Neg-Trace); RBC/HPF 21-50 HPF (0-3); Squamous Epithelial 0-3 HPF (0-3); Urobilinogen Normal mg/dL (Less than 2); WBC/HPF Greater than 50 HPF (0-3)
[2019-10-31 13:27] LABS: Urine Culture Reflex Yes Yes
[2019-10-31] MEDS ORDERED: cefTRIAXone\\ROCEPHIN 1 GM in Sodium Chloride 0.9% 100 ML IVPB SCH ×2 (18:30→21:00)
[2019-10-31] MEDS: traZODone HCl 50 MG TAB PO SCH (20:05)
[2019-11-01 03:05] LABS: PTT 128.3 SEC (22.9-36.1)
[2019-11-01] MEDS ORDERED: Heparin 10,000 UNITS/1 ML VIAL 30,000 UNITS in Sodium Chloride 0.9% 1,000 ML FS SCH (08:45)
[2019-11-01] MEDS: Carvedilol 3.125 MG TAB PO SCH (09:11)
[2019-11-01] MEDS ORDERED: Lidocaine 1% PF 5 ML VIAL ONE (09:59)
[2019-11-01] MEDS ORDERED: Aminocaproic Acid 5 GM/20 ML VIAL ONE (09:59)
[2019-11-01] MEDS ORDERED: Heparin 5,000 UNITS/ML VIAL ONE (09:59)
[2019-11-01] MEDS ORDERED: Thrombin 5000 UNITS/5 ML VIAL ONE (09:59)
[2019-11-01] MEDS ORDERED: PROPOFOL 200 MG/20 ML VIAL ONE (09:59)
[2019-11-01] MEDS ORDERED: Protamine Sulfate 250 MG/25 ML VIAL ONE (09:59)
[2019-11-01] MEDS ORDERED: Heparin 30,000 units/30 ml VIAL ONE (09:59)
[2019-11-01] MEDS ORDERED: Potassium Chloride 60 MEQ/30 ML VIAL ONE (09:59)
[2019-11-01] MEDS ORDERED: Papaverine 60 MG/2 ML VIAL ONE (09:59)
[2019-11-01] MEDS ORDERED: PHENYLEPHRINE-NS 100 MCG/ML 10 ML SYRINGE ONE (09:59)
[2019-11-01] MEDS ORDERED: Calcium Chloride 1 GM/10 ML Abboject SYRINGE ONE (09:59)
[2019-11-01] MEDS ORDERED: Magnesium Sulfate 1 GM/2 ML VIAL ONE (09:59)
[2019-11-01] MEDS ORDERED: Rocuronium Bromide 10 MG/ML (10ML VIAL) ONE (09:59)
[2019-11-01] MEDS ORDERED: Lidocaine 2% PF 5 ML VIAL ONE (09:59)
[2019-11-01] MEDS ORDERED: Sodium Bicarb 50 MEQ/50 ML Abboject 8.4% SYRINGE ONE ×2 (09:59→12:57)
[2019-11-01] MEDS ORDERED: Albumin 5% 0 ML ONE (11:30)
[2019-11-01] MEDS ORDERED: cefTRIAXone\\ROCEPHIN 1 GM in Sodium Chloride 0.9% 100 ML IVPB SCH (12:00)
[2019-11-01] MEDS ORDERED: Atropine Sulfate 1 mg/10 ml Syringe ONE (12:57)
[2019-11-01] MEDS ORDERED: Magnesium 5 GM/10 ML Abboject SYRINGE ONE (12:57)
[2019-11-01] MEDS ORDERED: EPINEPHrine 1 MG/10 ML Abboject SYRINGE ONE ×2 (12:57→18:13)
[2019-11-01] MEDS ORDERED: Midazolam HCl 2 mg/2 ml Vial ONE (13:06)
[2019-11-01] MEDS ORDERED: Midazolam HCl 5 mg/5 ml Vial ONE (13:31)
[2019-11-01] MEDS ORDERED: Fentanyl 250 MCG/5 ML VIAL ONE (13:31)
[2019-11-01] MEDS ORDERED: Dexamethasone 4 mg/ml Vial ONE (15:31)
[2019-11-01] MEDS ORDERED: Bupivacaine PF 0.5% 30 ML VIAL ONE (15:31)
[2019-11-01] MEDS ORDERED: EPINEPHrine 1 MG/ML AMP ONE (15:31)
[2019-11-01] MEDS ORDERED: Norepinephrine 8 MG/0.9% NS 250 ML IVPB PRN (16:44)
[2019-11-01] MEDS ORDERED: Nitroglycerin 50 MG/250 ML BOT 250 ML IVPB PRN (16:44)
[2019-11-01] MEDS ORDERED: Acetaminophen 325 MG TAB PO PRN (16:44)
[2019-11-01] MEDS ORDERED: Bisacodyl 5 MG TAB PO PRN (16:44)
[2019-11-01] MEDS ORDERED: D5 1/2 NS w/20 mEq KCL 1,000 ML IV SCH (16:44)
[2019-11-01] MEDS ORDERED: Ondansetron PF 4 MG/2 ML Vial IVP PRN (16:44)
[2019-11-01] MEDS ORDERED: Bisacodyl 10 MG SUPP PR PRN (16:44)
[2019-11-01] MEDS ORDERED: Guaifenesin DM 100-10/5 ML UDCUP PO PRN (16:44)
[2019-11-01] MEDS ORDERED: traMADol HCl 50 MG TAB PO PRN (16:44)
[2019-11-01] MEDS ORDERED: hydrALAZINE 20 MG/ML VIAL SLOW IVP PRN (16:44)
[2019-11-01] MEDS ORDERED: Mag-Al 1200 mg/1200 mg/30 ML UDCUP PO PRN (16:44)
[2019-11-01] MEDS ORDERED: Hetastarch 6% 500 ML 500 ML IVPB PRN (16:44)
[2019-11-01] MEDS ORDERED: Potassium Chloride 20 MEQ/100 ML PREMIX BAG IVPB PRN (16:44)
[2019-11-01] MEDS ORDERED: Morphine 2 MG/ML SYRINGE SLOW IVP PRN (16:44)
[2019-11-01] MEDS ORDERED: Fentanyl 100 MCG/2 ML VIAL SLOW IVP PRN ×2 (16:44)
[2019-11-01 16:51] VITALS: BP 95/74
[2019-11-01 16:54] LABS: Hemoglobin 12.4 g/dL (12.0-16.0); Mean Corpuscular HGB CONC 34.3 g/dL (32.0-36.0); Mean Corpuscular Hemoglobin 30.9 pg (27.0-31.0); Mean Corpuscular Volume 90.3 fL (78.0-98.0); Mean Platelet Volume 7.1 fL (7.4-10.4); Platelet Count 179 thou/uL (130-400); RBC Distribution Width 12.1 % (11.5-14.5); Red Blood Cell (RBC) Count 4.02 mill/uL (4.20-5.40); White Blood Cell (WBC) Count 19.7 thou/uL (4.8-10.8)
[2019-11-01 16:58] LABS: Actual Bicarbonate (HCO3a) 20.1 mEq/L (22-28); Base Excess (BEa) -4.7 mEq/L (-2.0 to +3.0); Calcium, Ionized 1.03 mmol/L (1.12-1.30); Carboxyhemoglobin (COHb) 0.5 gm% (0.0-3.0); Hemoglobin (Hb) 10.6 g/dL (12.0-16.0); O2 Tension (PaO2) 93.2 mmHg (> 70.0); Potassium - ABG Lab 3.73 mmol/L (3.70-5.30); pH, Arterial 7.37 (7.35-7.45)
[2019-11-01 16:58] LABS: INR-International Normal Ratio 1.3; PTT 29.9 SEC (22.9-36.1); Prothrombin Time 15.7 SEC (12.0-14.7)
[2019-11-01] MEDS ORDERED: Insulin Regular 300 UNITS/3 ML VIAL SC PRN (17:01)
[2019-11-01] MEDS ORDERED: Dextrose 5% in Water 1,000 ML IV PRN (17:01)
[2019-11-01] MEDS ORDERED: Dextrose 50% Abboject 50 ML SYRINGE SLOW IVP PRN (17:01)
--- NOTE | 2019-11-01 17:01 | PDOC.CPN ---
- Subjective Date: 11/01/19 Time: 17:00 - Review of Systems ROS unobtainable: due to endotracheal tube - Objective Allergies/Adverse Reactions: Allergies Allergy/AdvReac Type Severity Reaction Status Date / Time No Known Allergies Allergy Unverified 10/27/19 05:49 Visit Medications: Current Medications Acetaminophen (Tylenol) 650 mg PO Q6H PRN PRN Reason: Headache/Fever Or Mild Pain Al Hydroxide/Mg Hydroxide (Maalox) 30 ml PO Q4H PRN PRN Reason: Indigestion Albumin Human (Albumin 5%) 12.5 gm IVPB Q6H PRN PRN Reason: To Maintain SBP> 90 mmHG Stop: 11/02/19 16:45 Albumin Human (Albumin 5%) 25 gm IVPB Q6H PRN PRN Reason: To Maintain SBP > 90 mmHG Stop: 11/02/19 16:45 Albuterol/Ipratropium (Duoneb) 3 ml NEB Q3WO-GP PRN PRN Reason: SHORTNESS OF BREATH Aspirin (Aspirin) 325 mg PO DAILY [facility] Bisacodyl (Dulcolax) 10 mg PO Q12H PRN PRN Reason: Constipation Bisacodyl (Dulcolax) 10 mg [place] Q12H PRN PRN Reason: Constipation Ciprofloxacin (Cipro) 500 mg PO BID@0600,2000 [facility] Stop: 11/06/19 06:01 Famotidine (Pepcid) 20 mg SLOW IVP Q12HR [facility] Fentanyl (Sublimaze) 25 mcg SLOW IVP Q2H PRN PRN Reason: Moderate Pain (4-6) Stop: 11/03/19 16:18 Fentanyl (Sublimaze) 50 mcg SLOW IVP Q2H PRN PRN Reason: Severe Pain (7-10) Stop: 11/03/19 16:18 Guaifenesin/Dextromethorphan (Robitussin Dm) 15 ml PO Q4H PRN PRN Reason: Cough Hydralazine HCl (Apresoline) 10 mg SLOW IVP Q6H PRN PRN Reason: To Maintain SBP< 140mmHG Cefazolin Sodium/Dextrose 1 gm (/ Device) 50 mls @ 100 mls/hr IVPB Q8HR [facility] Stop: 11/02/19 14:29 Potassium Chloride/Dextrose/Sod Cl (D5 1/2 Ns W/20 Meq Kcl) 1,000 mls @ 40 mls/ hr IV .Q24H [facility] Hetastarch/Sodium Chloride (Hespan) 500 mls @ 0 mls/hr IVPB PRN PRN PRN Reason: To Maintain SBP > 90mmHg Stop: 11/02/19 16:18 Norepinephrine Bitartrate (Levophed) 250 mls @ 0 mls/hr IVPB PRN PRN; Protocol PRN Reason: To maintain SBP > 90 mmHG Magnesium Sulfate 1 gm/ Sodium (Chloride) 102 mls @ 204 mls/hr IVPB NOW [facility] Stop: 11/01/19 19:00 Magnesium Sulfate 1 gm/ Device 25 mls @ 50 mls/hr IVPB QAM [facility] Stop: 11/03/19 09:59 Nitroglycerin/Dextrose (Nitroglycerin 50 Mg/250 Ml Bot) 250 mls @ 0 mls/hr IVPB PRN PRN; Protocol PRN Reason: To Maintain SBP< 140mmHG Ketorolac Tromethamine (Toradol) 15 mg IVP Q6HR [facility] Stop: 11/04/19 18:01 Miscellaneous Medication (Post-Op Sliding Scale) 1 each FS ONE ONE Stop: 11/01/19 16:45 Morphine Sulfate (Morphine) 2 mg SLOW IVP Q15MIN PRN PRN Reason: Severe Pain (7-10) Ondansetron HCl (Zofran) 4 mg IVP Q6H PRN PRN Reason: Nausea/Vomiting Potassium Chloride (Kcl) 20 meq IVPB PRN PRN PRN Reason: K level </= 4.0 Sodium Chloride (Flush - Normal Saline) 10 ml IVF Q12HR [facility] Tramadol HCl (Ultram) 50 mg PO Q6H PRN PRN Reason: Pain Vital Signs & Weight: Vital Signs Temp Pulse Resp BP BP Pulse Ox 11/01/19 16:48 87 95/74 11/01/19 07:47 98.1 F 81 16 94/73 97 Admit Weight 145 lb 4.554 oz Weight 145 lb 4.554 oz - Physical Exam General: other (sedated on ventilator.) Cardiac: regular rate and rhythm Lungs: clear to auscultation Abdomen: unremarkable Extremities: no edema - Labs Result Diagrams: 11/01/19 16:37 10/31/19 05:56 Troponin/CKMB CK-MB (CK-2) 271.9 ng/mL (0-6.6) H* 10/27/19 04:11 Troponin I 58.858 ng/mL (< 0.028) H* 10/30/19 05:48 - Telemetry Sinus rhythms and dysrhythmias: sinus rhythm - Assessment/Plan Assessment/Plan: 1. CAD with s/p LHC on 10/26/2019 with 100% stenosis in LAD, stenosis in RCA and no stenosis in Lt Cx. CABG x1 to RCA by Dr Welsh on 11/01/2019; On bblocker and ASA. Lisinopril is on hold how due to hypotensive. may resume statin after CABG; On Heparin drip. 2. HLD with Elevated LFT -may resume Statin after CABG 3. HTN - holding Lisinopril for hypotension 4. Anxiety 5. Tobacco abuse - The pt is willing to start smoking cessation 6. Constipation - will order Miralax, Docolax, Mg citrate 7. UTI. Rocephin yesterday, continue Cipro post op. MAR reviewed * Echo on 10/27/2019 with EF 35-40%, grade I dd, akinetic anterior wall, [place] and Septum, mild MR and TR * May need a Life-Vest prior to d/c. Plan to repeat the echo prior to d/c
[2019-11-01 17:05] LABS: Anion Gap 13 mmol/L (10-20); BUN (Urea Nitrogen) 11 mg/dL (9.8-20.1); Calc. Creatinine Clearance 96 mL/min (70-130); Calcium 7.4 mg/dL (7.8-10.44); Carbon Dioxide 20 mmol/L (23-31); Chloride 110 mmol/L (98-107); Estimated GFR-MDRD Greater than 90; Glucose 185 mg/dL (80-115); Potassium 3.8 mmol/L (3.5-5.1); Sodium 139 mmol/L (136-145)
[2019-11-01 17:17] LABS: Band 26 % (5-11); Eosinophils 2 % (0-10); Lymphocytes 10 % (21-51); MDiff Complete? YES; Monocytes 2 % (0-10); Neutrophil 60 % (42-75); Platelet Morphology Comment Appears Adequate; RBC Morphology Normal
--- NOTE | 2019-11-01 17:35 | RAD ---
EXAM: CHEST ONE VIEW: 11/01/19 HISTORY: Status post open heart. Recent postop open heart surgical change with life support tubes in place. Bilateral vascular congest ion. Small amount of air adjacent to the left heart border. Minimal parenchymal changes in the left b ase probably some subsegmental atelectasis. Small left pleural effusion. IMPRESSION: Recent postoperative changes. Bilateral vascular congestion with minimal parenchymal changes in the l eft base and small left pleural effusion. Small amount of air density adjacent to the inferior left h eart border. Continue short term follow-up. POS: [facility]
[2019-11-01] MEDS ORDERED: Ketorolac Tromethamine 30 MG/ML VIAL IVP SCH (18:00)
[2019-11-01 18:31] LABS: Actual Bicarbonate (HCO3a) 10.6 mEq/L (22-28); Base Excess (BEa) -13.4 mEq/L (-2.0 to +3.0); Calcium, Ionized 1.03 mmol/L (1.12-1.30); Carboxyhemoglobin (COHb) 0.3 gm% (0.0-3.0); O2 Tension (PaO2) 213.8 mmHg (> 70.0); pH, Arterial 7.33 (7.35-7.45)
[2019-11-01 18:45] LABS: ALV-art Gradient 473.325 (0-20); CO2 Tension 20.7 mmHg (35.0-45.0); Puncture Site LINE
[2019-11-01 19:26] VITALS: TEMP 97.9
[2019-11-01] MEDS ORDERED: Ciprofloxacin 500 MG TAB PO SCH (20:00)
[2019-11-01] MEDS ORDERED: Famotidine/PF 20 mg/2ml Vial SLOW IVP SCH (21:00)
[2019-11-01] MEDS ORDERED: CEFAZOLIN 1 GM in Sodium Chloride 0.9% 100 ML IVPB SCH (22:00)
--- NOTE | 2019-11-01 22:52 | OP ---
DATE OF PROCEDURE: 11/01/2019 PREOPERATIVE DIAGNOSIS: Coronary artery disease/status post ST-elevation myocardial infarction. POSTOPERATIVE DIAGNOSIS: Coronary artery disease/status post ST-elevation myocardial infarction. PROCEDURE: Coronary artery bypass grafting x1-reverse saphenous vein to patent ductus arteriosus. DUST PULLER: Dr. Dallin Cho. ANESTHESIA: General endotracheal, Dr. Alvaro Torres. PUMP TIME: 28 minutes. CROSS-CLAMP TIME: 13 minutes. LOCAL-CORE TEMPERATURE: 36 degrees Celsius. STACK CLERK: Annalee Llanes. DRAINS: 24 and 19-Armenian drain. DRIPS: Levophed at 4 mcg. TRANSFUSIONS: None, DESCRIPTION OF PROCEDURE: After consent was obtained, patient was brought to the operating room and placed in supine position on the operating room table. Appropriate central line and monitors were placed and general endotracheal anesthesia was induced. Chest, abdomen, and legs were prepped and draped in the usual sterile fashion. Greater saphenous vein was harvested from skip incisions from the left thigh. Wounds were irrigated and closed in layers. Median sternotomy was performed. The thymic fat and pericardium divided with electrocautery. The patient was systemically heparinized. Aortic and atrial cannulation was performed. After adequate heparinization, retrograde prime was performed and the patient was placed on cardiopulmonary bypass. Distal target was marked. Aortic cross-clamp was applied. 750 mL of antegrade [place] cold cardioplegia was given. Topical cold solution was used. The saphenous vein was anastomosed to PDA in end-to-side fashion with running 7-0 Prolene suture. Anastomosis was tested, was hemostatic. The cross-clamp was removed and partial occluding clamp placed. Saphenous vein was anastomosed to punch site in the aorta with running 6-0 Prolene suture. Partial occluding clamp was removed and graft was deaired. Anastomoses were inspected for hemostasis, which was good. The anterior wall of the heart was nonviable and noncontractile. 19 and 24-Armenian drain were placed in mediastinum. After resumption of sinus rhythm, good hemodynamics, temperature greater than 36.5, bypass was discontinued. Transfusions were given. Protamine was administered. Decannulation was performed and pursestring suture secured. A 19 and 24 drain were again placed in the mediastinum. Vancomycin paste was placed on the sternal edges. Sternum was closed with #5 wire. The sternum was treated with platelet rich plasma, wires twisted, and buried. Wounds were irrigated and treated with platelet-poor plasma and closed in multiple layers. Needle, sponge, and instrument counts were all reported as correct at the end of the procedure. The patient tolerated the procedure well, transferred to the intensive care unit in stable, but critical condition. Job ID: [id number]
[2019-11-02] MEDS ORDERED: Aspirin 325 MG TAB PO SCH (09:00)
--- NOTE | 2019-11-03 22:23 | DIS ---
DATE OF ADMISSION: 10/27/2019 DATE OF DISCHARGE: 11/01/2019 CODE/ NOTE: Ms. Carney was in the intensive care unit post coronary artery bypass grafting, doing well. She was in sinus rhythm with stable vital signs on a Levophed drip at 4 mcg. She suddenly lost her pulse, became bradycardic and asystolic. I had just walked out of her room at that point and returned. On my return, CPR had been initiated already. ACLS code was run for 25 minutes with no return of any rhythm. On her blood gas, her pH was 7.33, CO2 was 20, PO2 was 213 with a base excess of -13. Her hemoglobin was 12, which was stable from immediately postoperatively. During CPR, her chest tubes began to drain more. Due to her previous large anterior infarct, I did not feel that we could do anything to aid her with opening her chest and open cardiac massage at that point. After 25 minutes of code, we elected to stop CPR. I discussed the events leading to her with her family and then answered all their questions. They denied autopsy. Job ID: [id number]
== END 2019-11-01 18:35 | disposition expired | DRG 233 ==
LOC: ERS 04:04 → CCU 04:13 → SDC/OP 05:35 → EDBD 05:43 → CCU 05:43 → 2SE 10-29 18:24 → CCU 11-01 11:21
PROVIDERS: ADMIT Internal Medicine Cardiovascular Disease; ATTEND Internal Medicine Cardiovascular Disease
PROC: 4A023N7 Measurement of Cardiac Sampling and Pressure, Left Heart, Percutaneous Approach (ICD-10-PCS; 2019-10-27)
PROC: B2151ZZ Fluoroscopy of Left Heart using Low Osmolar Contrast (ICD-10-PCS; 2019-10-27)
PROC: B2111ZZ Fluoroscopy of Multiple Coronary Arteries using Low Osmolar Contrast (ICD-10-PCS; 2019-10-27)
PROC: 021009W Bypass Coronary Artery, One Artery from Aorta with Autologous Venous Tissue, Open Approach (ICD-10-PCS; principal; 2019-11-01)
PROC: 06BQ0ZZ Excision of Left Saphenous Vein, Open Approach (ICD-10-PCS; 2019-11-01)
PROC: 5A1221Z Performance of Cardiac Output, Continuous (ICD-10-PCS; 2019-11-01)
PROC: 3E033XZ Introduction of Vasopressor into Peripheral Vein, Percutaneous Approach (ICD-10-PCS; 2019-11-01)
PROC: 5A12012 Performance of Cardiac Output, Single, Manual (ICD-10-PCS; 2019-11-01)
DX: I21.09 ST elevation (STEMI) myocardial infarction involving other coronary artery of anterior wall (principal); J96.01 Acute respiratory failure with hypoxia; I50.43 Acute on chronic combined systolic (congestive) and diastolic (congestive) heart failure; N39.0 Urinary tract infection, site not specified; F17.210 Nicotine dependence, cigarettes, uncomplicated; E78.00 Pure hypercholesterolemia, unspecified; I25.10 Atherosclerotic heart disease of native coronary artery without angina pectoris; E78.5 Hyperlipidemia, unspecified; I11.0 Hypertensive heart disease with heart failure; F41.9 Anxiety disorder, unspecified; K59.00 Constipation, unspecified; I95.9 Hypotension, unspecified; Z90.49 Acquired absence of other specified parts of digestive tract; Z79.899 Other long term (current) drug therapy; Z88.5 Allergy status to narcotic agent; I46.9 Cardiac arrest, cause unspecified
CPT/HCPCS: 36415; 36416; 71045; 80048; 80053; 80061; 81001; 82550; 82553; 82805; 83036; 83690; 84484; 85014; 85018; 85025; 85049; 85347; 85610; 85730; 86850; 86900; 86901; 87077; 87086; 87186; 92950; 93005; 93010; 93306; 93458; 93798; 94002; 94760; 96374; C1769; C1887; J0171; J0461; J0690; J0696; J1100; J1642; J1644; J1815; J1885; J2001; J2250; J2270; J2405; J2440; J2704; J2720; J3010; J3370; J3475; J3480; J3490; P9045; Q9967; S0017; S0020